=== PATIENT | female | born 1990 | race Caucasian/White ===

== ENCOUNTER 2021-03-26 11:07 | Inpatient (IN) | payer OTHER ==
[~2021-03-26] VITALS: Ht 165.1 cm; Wt 97.0 kg
[2021-03-26] MEDS ORDERED: FENTANYL PF 100 MCG/2ML IV PRN (12:30)
[2021-03-26] MEDS ORDERED: PLEASE ENTER HEIGHT AND WEIGHT MC SCH (12:30)
[2021-03-26] MEDS ORDERED: PLEASE ENTER ALLERGIES MC SCH (12:30)
[2021-03-26] MEDS ORDERED: ONDANSETRON 2MG/ML, 2ML IVPush PRN (12:30)
[2021-03-26] MEDS ORDERED: OXYTOCIN 30U/ 0.9% NaCL 500ML 500 ML IV ONE (12:30)
[2021-03-26] MEDS ORDERED: MISOPROSTOL 25 MCG TABLET VG PRN (12:30)
[2021-03-26] MEDS ORDERED: FENTANYL PF 100 MCG/2ML IVPush PRN (12:30)
[2021-03-26] MEDS ORDERED: TERBUTALINE 1 MG/ML, 1ML IVPush PRN (12:30)
[2021-03-26] MEDS ORDERED: TERBUTALINE 1 MG/ML, 1ML SQ PRN (12:30)
[2021-03-26 12:35] LABS: BASOPHILS % (AUTO) 1 % (0-1); EOSINOPHILS % (AUTO) 1 % (1-7); LYMPHOCYTES % (AUTO) 14 % (22-44); MEAN CORPUSCULAR HEMOGLOBIN 31.5 pg (27.0-34.8); MEAN CORPUSCULAR HGB CONC 34.1 g/dL (32.4-35.8); MEAN PLATELET VOLUME 8.9 fL (7.4-10.4); MONOCYTES % (AUTO) 8 % (2-9); NEUTROPHILS % (AUTO) 77 % (42-75); PLATELET COUNT 147 x10^3/uL (130-400); RED BLOOD COUNT 4.07 x10^6/uL (3.82-5.3)
[2021-03-26 13:17] VITALS: BP 117/72
[2021-03-26] MEDS ORDERED: NEWBORN KIT ONE (13:46)
[2021-03-26] MEDS ORDERED: LIDOCAINE 1%, 20ML ONE (13:47)
[2021-03-26] MEDS: LACTATED RINGERS 1,000 ML IV SCH ×2 (16:54→20:30)
[2021-03-26] MEDS ORDERED: FENTANYL/BUPIV./NS/PF 250 ML EPIDCONT ONE (19:52)
[2021-03-26] MEDS ORDERED: BUPIVACAINE 0.25% ONE (19:52)
[2021-03-26] MEDS ORDERED: LACTATED RINGERS 1,000 ML IV SCH (20:30)
[2021-03-26] MEDS ORDERED: LACTATED RINGERS 1,000 ML IVBOLUS PRN (20:30)
[2021-03-26] MEDS ORDERED: FENTANYL/BUPIV./NS/PF 250 ML EPIDCONT SCH (20:30)
[2021-03-26] MEDS ORDERED: EPHEDRINE 50 MG/ML, 1ML IVPush PRN (20:30)
[2021-03-27] MEDS ORDERED: OXYcodone/APAP 5/325MG TABLET PO PRN (02:00)
[2021-03-27] MEDS ORDERED: MISOPROSTOL 200 MCG TABLET PR PRN (02:00)
[2021-03-27] MEDS ORDERED: SIMETHICONE 80 MG CHEW TAB PO PRN (02:00)
[2021-03-27] MEDS ORDERED: ACETAMINOPHEN 325 MG TABLET PO PRN (02:00)
[2021-03-27] MEDS ORDERED: OXYcodone IR 5MG TABLET PO PRN (02:00)
[2021-03-27] MEDS ORDERED: ONDANSETRON 2MG/ML, 2ML IV PRN (02:00)
[2021-03-27] MEDS: OXYTOCIN 30U/ 0.9% NaCL 500ML 500 ML IV SCH ×3 (02:00→22:00)
[2021-03-27 04:00] VITALS: BP 114/66
[2021-03-27] MEDS: LACTATED RINGERS 1,000 ML IV SCH (04:30)
[2021-03-27 07:30] VITALS: BP 115/71
[2021-03-27 10:02] LABS: BASOPHILS % (AUTO) 0 % (0-1); EOSINOPHILS % (AUTO) 0 % (1-7); LYMPHOCYTES % (AUTO) 8 % (22-44); MEAN CORPUSCULAR HEMOGLOBIN 31.6 pg (27.0-34.8); MEAN CORPUSCULAR HGB CONC 34.3 g/dL (32.4-35.8); MEAN PLATELET VOLUME 9.2 fL (7.4-10.4); MONOCYTES % (AUTO) 4 % (2-9); NEUTROPHILS % (AUTO) 88 % (42-75); PLATELET COUNT 117 x10^3/uL (130-400); RED BLOOD COUNT 3.89 x10^6/uL (3.82-5.3); RED CELL DISTRIBUTION WIDTH 14.8 % (9.6-15.2)
[2021-03-27] MEDS: DOCUSATE 100 MG CAPSULE PO PRN ×2 (10:08→19:00)
[2021-03-27] MEDS: PRENATAL VIT/IRON/FA 1 EACH TABLET PO SCH (10:08)
[2021-03-27] MEDS: IBUPROFEN 600 MG TABLET PO PRN ×2 (10:09→19:01)
[2021-03-27 12:04] VITALS: BP 110/70
[2021-03-27 16:00] VITALS: BP 110/73
[2021-03-27 20:15] VITALS: BP 111/74
[2021-03-28 00:15] VITALS: BP 109/71
[2021-03-28] MEDS: IBUPROFEN 600 MG TABLET PO PRN ×2 (03:17→10:32)
[2021-03-28] MEDS ORDERED: DIPH,PERTUSS(ACELL),TET VAC/PF NC IM-VACC ONE ×2 (08:23→09:00)
[2021-03-28] MEDS: PRENATAL VIT/IRON/FA 1 EACH TABLET PO SCH (08:37)
[2021-03-28] MEDS: DOCUSATE 100 MG CAPSULE PO PRN (08:37)
[2021-03-28 09:04] VITALS: BP 112/74
[2021-03-28] MEDS ORDERED: IBUP-1222 PO (09:30)
== END 2021-03-28 11:00 | disposition home or self-care (01) | DRG 807 ==
LOC: LDOP 11:07 → LDIP 12:02 → 2NW 03-27 03:55
PROVIDERS: ADMIT Obstetrics & Gynecology; ATTEND Obstetrics & Gynecology
PROC: 10E0XZZ Delivery of Products of Conception, External Approach (ICD-10-PCS; principal; 2021-03-26)
PROC: 10907ZC Drainage of Amniotic Fluid, Therapeutic from Products of Conception, Via Natural or Artificial Opening (ICD-10-PCS; 2021-03-26)
PROC: 3E0P7VZ Introduction of Hormone into Female Reproductive, Via Natural or Artificial Opening (ICD-10-PCS; 2021-03-26)
PROC: 3E0R3BZ Introduction of Anesthetic Agent into Spinal Canal, Percutaneous Approach (ICD-10-PCS; 2021-03-26)
PROC: 00HU33Z Insertion of Infusion Device into Spinal Canal, Percutaneous Approach (ICD-10-PCS; 2021-03-26)
DX: O69.81X0 Labor and delivery complicated by cord around neck, without compression, not applicable or unspecified (principal); Z37.0 Single live birth; Z3A.40 40 weeks gestation of pregnancy; Z20.822 Contact with and (suspected) exposure to COVID-19
CPT/HCPCS: 36415; 85025; 86592; 86850; 86900; 87635; 90715; G0378; J3010; J7120